=== PATIENT | female | born 1960 | race Caucasian/White ===

== ENCOUNTER 2017-01-21 19:38 | Emergency (ER) | payer OTHER ==
[~2017-01-21] VITALS: Ht 162.6 cm; Wt 92.7 kg
[~2017-01-21 19:38] MED LIST: ASPIRIN81 M1 PO; CYMBALTA60 MG PO; JANUMET 50/51 TABLET PO; METOPROLOL TAR100 MG PO; PREVACID30 MG PO; SIMVASTATIN80 M1 PO; Vicodin,Norco 5/325 PO; WELLBUTRIN SR100 MG PO; WELLBUTRIN100 MG PO; WOMEN'S 50+ DA1 EACH PO; XANAX0.5 MG PO
[2017-01-21 20:28] LABS: HEMATOCRIT 38.4 % (36.0-46.0); MCH 25.3 PG (29.0-34.0); MCHC 31.3 G/DL (30.0-36.0); MCV 80.8 FL (83-99); MEAN PLAT.VOLUME 8.6 uM^3 (9.5-12.4); PLATELET COUNT 245 K/uL (156-360); RBC DIS.WIDTH-CV 15.7 % (11.8-14.6); RED BLOOD COUNT 4.75 M/uL (3.80-5.20); WHITE BLOOD COUNT 6.4 K/uL (4.1-10.2)
[2017-01-21 20:36] LABS: CHLORIDE 105 mEq/L (99-109); POTASSIUM 4.6 mEq/L (3.7-5.4); SODIUM 140 mEq/L (136-147)
[2017-01-21 20:38] LABS: GLUCOSE 196 mg/dL (70-99)
[2017-01-21 20:39] LABS: ANION GAP 13 MEQ/L (2-14)
[2017-01-21 20:41] LABS: GFR ESTIMATE (CALCULATED) > 59 mL/min/
[2017-01-21 20:42] LABS: UREA NITROGEN (BUN) 7 mg/dL (9-23)
[2017-01-21 20:49] LABS: TROP-I INTERPRETATION NEGATIVE; TROPONIN-I < 0.01 ng/mL (0.0-0.30)
[2017-01-21 22:06] VITALS: BP 136/98
== END 2017-01-21 22:12 | disposition home or self-care (01) ==
LOC: EME 19:38
DX: K11.20 Sialoadenitis, unspecified (principal); H92.01 Otalgia, right ear; Z85.3 Personal history of malignant neoplasm of breast; Z90.12 Acquired absence of left breast and nipple; Z90.710 Acquired absence of both cervix and uterus
CPT/HCPCS: 71020; 80048; 84484; 85027; 93005; 99281; 99284